=== PATIENT | male | born 1970 ===

== ENCOUNTER 2018-03-23 10:32 | Emergency (ER) | payer OTHER ==
[2018-03-23 10:45] VITALS: BMI 22.9
[2018-03-23] MEDS ORDERED: Sodium Chloride 0.9% 1,000 ML IV STA ×2 (12:12→14:05)
--- NOTE | 2018-03-23 12:17 | ED PDOC ---
HPI: CCC, URI, Sore Throat Time Seen by Provider: 03/23/18 11:12 History Per: Patient Onset/Duration Of Symptoms: Days (2) Current Symptoms Are (Timing): Still Present Associated Symptoms: Fever, Cough Severity: Mild Additional Complaint(s): Cough productive clear sputum assoc with fever x 2 days. Denies SOB. Also c/o epigastric abd pain assoc with vomiting. Denies diarrhea. Past Medical History Vital Signs: Last Vital Signs Temp 97 F L 03/23/18 17:57 Pulse 78 03/23/18 17:57 Resp 19 03/23/18 17:57 BP 128/78 03/23/18 17:57 Pulse Ox 98 03/23/18 17:57 - Medical History PMH: Diabetes - Family History Family History: States: Unknown Family Hx - Home Medications Home Medications: Ambulatory Orders Medication Instructions Recorded Famotidine [Pepcid] 20 mg PO DAILY PRN #6 tab 03/23/18 Ibuprofen [Motrin] 600 mg PO TID 7 Days tab 03/23/18 Ondansetron [Zofran] 4 mg PO Q8H PRN #6 tab 03/23/18 - Allergies Allergies/Adverse Reactions: Allergies Allergy/AdvReac Type Severity Reaction Status Date / Time No Known Allergies Allergy Verified 03/25/18 07:43 Review of Systems Constitutional: Negative for: Fever Respiratory: Positive for: Cough Gastrointestinal: Positive for: Vomiting, Abdominal Pain Physical Exam - Reviewed Nursing Documentation Reviewed: Yes Vital Signs Reviewed: Yes - Physical Exam Appears: Positive for: Non-toxic, No Acute Distress Head Exam: Positive for: ATRAUMATIC, NORMAL INSPECTION, NORMOCEPHALIC Skin: Positive for: Normal Color, Warm, DRY Eye Exam: Positive for: EOMI, Normal appearance, PERRL ENT: Positive for: Other (Mucous membranes dry) Neck: Positive for: Normal, Painless ROM Cardiovascular/Chest: Positive for: Regular Rate, Rhythm Respiratory: Positive for: Rhonchi. Negative for: Wheezing, Respiratory Distress Gastrointestinal/Abdominal: Positive for: Soft, Tenderness (epigastric) Back: Positive for: Normal Inspection Extremity: Positive for: Normal ROM Neurologic/Psych: Positive for: Alert, Oriented - Laboratory Results Result Diagrams: 03/23/18 12:29 03/23/18 12:29 - ECG O2 Sat by Pulse Oximetry: 99 Disposition - Clinical Impression Clinical Impression: Abdominal pain, URI (upper respiratory infection), Hyperglycemia - Patient ED Disposition Is Patient to be Admitted: Transfer of Care - Disposition Referrals: [facility] [Outside] - 03/24/18 Disposition: Transfer of Care Disposition Time: 15:00 Condition: STABLE Additional Instructions: Return if not better in 3 days. Prescriptions: Famotidine [Pepcid] 20 mg PO DAILY PRN #6 tab PRN Reason: Pain Ibuprofen [Motrin] 600 mg PO TID 7 Days tab Ondansetron [Zofran] 4 mg PO Q8H PRN #6 tab PRN Reason: Nausea/Vomiting Instructions: Hyperglycemia, Adult, Viral Upper Respiratory Infection, Adult ( DC), Stomach Ache and Stomach Upset Forms: [employer] (Tajik), [facility] ED School/Work Excuse Patient Signed Over To: Piyush Louie
[2018-03-23 12:33] LABS: BASO % 0.1 % (0.0-2.0); HEMOGLOBIN 14.8 g/dL (12.0-18.0); LYMPH # 0.5 K/uL (1.0-4.3); LYMPH % 7.7 % (20.0-40.0); MEAN CELL VOLUME 89.1 fl (80.0-94.0); MEAN CORPUSCULAR HGB CONC 33.7 g/dL (33.0-37.0); MEAN PLATELET VOLUME 10.8 fl (7.2-11.7); MONO # 0.5 K/uL (0.0-0.8); MONO % 7.1 % (0.0-10.0); NEUT # 5.7 K/uL (1.8-7.0); NEUT % 85.1 % (50.0-75.0); RBC 4.94 Mil/uL (4.40-5.90); RED CELL DISTRIBUTION WIDTH 12.9 % (11.5-14.5); WHITE BLOOD COUNT 6.7 K/uL (4.8-10.8)
[2018-03-23 12:39] LABS: PLATELET COUNT 103 K/uL (130-400)
[2018-03-23 12:47] LABS: ALB/GLOB RATIO 1.4 (1.0-2.1); ALT/SGPT 64 U/L (21-72); AST/SGOT 36 U/L (17-59); BLOOD UREA NITROGEN 12 mg/dl (9-20); CALCIUM 9.1 mg/dL (8.4-10.2); GFR AFRICAN-AMERICAN > 60; GFR NON-AFRICAN AMERICAN > 60; LIPASE 77 U/L (23-300)
[2018-03-23 12:57] LABS: VENOUS BLOOD GAS BASE EXCESS 5.6 mmol/L (0.0-2.0); VENOUS BLOOD GAS PCO2 41 mmHg (40-60); VENOUS BLOOD GAS PO2 18 mm/Hg (30-55); VENOUS BLOOD PH 7.47 (7.32-7.43)
--- NOTE | 2018-03-23 13:24 | RAD ---
HISTORY: Cough COMPARISON: No prior. TECHNIQUE: Chest PA and lateral FINDINGS: LUNGS: No active pulmonary disease. PLEURA: No significant pleural effusion identified. No pneumothorax apparent. CARDIOVASCULAR: Normal. OSSEOUS STRUCTURES: No significant abnormalities. VISUALIZED UPPER ABDOMEN: Normal. OTHER FINDINGS: None. IMPRESSION: No active disease.
--- NOTE | 2018-03-23 13:41 | CARD ---
APPROVED REPORT EKG Measurement Heart [id number] <Conclusion> Normal sinus rhythm Normal ECG
[2018-03-23 13:59] LABS: BANDS 5 % (0-2); BASOPHIL 1 % (0-2); LYMPHOCYTE 8 % (20-50); MONOCYTE 5 % (0-10); NEUTROPHIL 81 % (42-75); TOTAL CELLS COUNTED 100
[2018-03-23 14:00] LABS: PLATELET ESTIMATE DECREASED (NORMAL)
--- NOTE | 2018-03-23 15:27 | ED PDOC ---
- Laboratory Results Result Diagrams: 03/23/18 12:29 03/23/18 12:29 Interpretation Of Abn Labs: 237 glucose - ECG ECG: Positive for: Interpreted By Me, Viewed By Me ECG Rhythm: Positive for: Normal QRS, Normal ST Segment, Sinus Rhythm O2 Sat by Pulse Oximetry: 98 Pulse Ox Interpretation: Normal - Radiology X-Ray: Read By Radiologist X-Ray Interpretation: No Acute Disease - CT Scan/US ct Other Rad Studies (CT/US): Read By Radiologist Other Rad Interpretation: no acute - Progress ED Course And Treament: 1743: Stable. AAOx3. Pain free. Has uri symptoms and epigastric pain. CT abd/pelvis no acute findings. FU with pcp. Medical Decision Making Medical Decision Making: Time: 1500 --Patient is endorsed to provider from Dr. Alba, pending CT ABD/pelvis results for complaints of upper abdominal pain with nausea, vomiting and diarrhea. Time: 1625 --CT ABD/pelvis FINDINGS: LOWER THORAX: Unremarkable. LIVER: Unremarkable. No gross lesion or ductal dilatation. GALLBLADDER AND BILE DUCTS: Unremarkable. PANCREAS: Unremarkable. No gross lesion or ductal dilatation. SPLEEN: Unremarkable. ADRENALS: Unremarkable. No mass. KIDNEYS AND URETERS: Unremarkable. No hydronephrosis. No solid mass. VASCULATURE: Unremarkable. No aortic aneurysm. BOWEL: Mild sigmoid diverticulosis. No evidence of diverticulitis. No other abnormal bowel loops are identified. APPENDIX: Normal appendix. PERITONEUM: Trace fluid in pelvis. No pneumoperitoneum. LYMPH NODES: Unremarkable. No enlarged lymph nodes. BLADDER: Unremarkable. REPRODUCTIVE: Normal prostate BONES: No acute fracture. OTHER FINDINGS: None. IMPRESSION: Mild sigmoid diverticulosis without evidence of diverticulitis. Trace fluid in pelvis, nonspecific. Otherwise unremarkable examination. Scribe Attestation: Documented by Arely Becerra, acting as a scribe for Piyush Louie MD. Provider Scribe Attestation: All medical record entries made by the Scribe were at my direction and personally dictated by me. I have reviewed the chart and agree that the record accurately reflects my personal performance of the history, physical exam, medical decision making, and the department course for this patient. I have also personally directed, reviewed, and agree with the discharge instructions and disposition. Disposition Counseled Patient/Family Regarding: Studies Performed, Diagnosis, Need For Followup, Rx Given - Clinical Impression Clinical Impression: Abdominal pain, URI (upper respiratory infection), Hyperglycemia - POA Present On Arrival: Poor Glycemic Control - Disposition Referrals: [facility] [Outside] - 03/24/18 Disposition: Routine/Home Disposition Time: 17:45 Condition: STABLE Additional Instructions: Return if not better in 3 days. Prescriptions: Famotidine [Pepcid] 20 mg PO DAILY PRN #6 tab PRN Reason: Pain Ibuprofen [Motrin] 600 mg PO TID 7 Days tab Ondansetron [Zofran] 4 mg PO Q8H PRN #6 tab PRN Reason: Nausea/Vomiting Instructions: Hyperglycemia, Adult, Viral Upper Respiratory Infection, Adult ( DC), Stomach Ache and Stomach Upset Forms: [employer] (Palauan), [facility] ED School/Work Excuse
[2018-03-23] MEDS ORDERED: Iohexol 300 100 ML IJ ONE (15:30)
[2018-03-23] MEDS ORDERED: Sodium Chloride 0.9% 100 ML ONE (15:31)
--- NOTE | 2018-03-23 16:26 | CT ---
PROCEDURE: CT Abdomen and Pelvis with contrast HISTORY: abd pain COMPARISON: None. TECHNIQUE: Contrast dose: 90 mL Omnipaque 300 Radiation dose: Total exam DLP = 339.29 mGy-cm. This CT exam was performed using one or more of the following dose reduction techniques: Automated exposure control, adjustment of the mA and/or kV according to patient size, and/or use of iterative reconstruction technique. FINDINGS: LOWER THORAX: Unremarkable. LIVER: Unremarkable. No gross lesion or ductal dilatation. GALLBLADDER AND BILE DUCTS: Unremarkable. PANCREAS: Unremarkable. No gross lesion or ductal dilatation. SPLEEN: Unremarkable. ADRENALS: Unremarkable. No mass. KIDNEYS AND URETERS: Unremarkable. No hydronephrosis. No solid mass. VASCULATURE: Unremarkable. No aortic aneurysm. BOWEL: Mild sigmoid diverticulosis. No evidence of diverticulitis. No other abnormal bowel loops are identified. APPENDIX: Normal appendix. PERITONEUM: Trace fluid in pelvis. No pneumoperitoneum. LYMPH NODES: Unremarkable. No enlarged lymph nodes. BLADDER: Unremarkable. REPRODUCTIVE: Normal prostate BONES: No acute fracture. OTHER FINDINGS: None. IMPRESSION: Mild sigmoid diverticulosis without evidence of diverticulitis. Trace fluid in pelvis, nonspecific. Otherwise unremarkable examination.
[2018-03-23 16:42] VITALS: RESP 19; TEMP 97
[2018-03-23 17:57] VITALS: BP 128/78; PULSE 78
[2018-03-25 09:23] VITALS: O2SAT 99
== END 2018-03-23 18:03 | disposition home or self-care (01) ==
LOC: H.ER 10:32
DX: R10.13 Epigastric pain (principal); J06.9 Acute upper respiratory infection, unspecified; E11.65 Type 2 diabetes mellitus with hyperglycemia; K57.30 Diverticulosis of large intestine without perforation or abscess without bleeding
CPT/HCPCS: 71046; 74177; 80053; 82803; 83690; 85025; 87040; 93005; 96374; 96375; 99284; J2405; J2765; J7030; Q9967

== ENCOUNTER 2018-03-25 07:38 | Emergency (ER) | payer OTHER ==
[2018-03-25 07:38] VITALS: BMI 22.9
[2018-03-25] MEDS ORDERED: Sodium Chloride 0.9% 1,000 ML IV STA (08:17)
--- NOTE | 2018-03-25 08:33 | ED PDOC ---
HPI: Abdomen Time Seen by Provider: 03/25/18 08:10 Chief Complaint (Nursing): Abdominal Pain Chief Complaint (Provider): Abdominal Pain History Per: Patient History/Exam Limitations: no limitations Current Symptoms Are (Timing): Still Present Additional History Per: Prior Records Additional Complaint(s): 47-year-old male, with a PMHx of diabetes, presents to ED for abdominal pain and vomiting. Pt was seen here 2 days for abdominal pain and vomiting. While here, blood work and CT scan were performed where results showed no inflammatory process or infectious process. Pt was discharged with anti-nausea medication and pain medication including Motrin. Pt states he not been able to eat, drink or tolerate any food since discharge. Reports pain as persistent. (+ ) vomiting, (-) fever, (-) chills, (+) feels weak, (-) cough, (-) chest pain, (- ) back pain, (+) left-sided abdominal pain, (-) rashes, (-) diarrhea PMD: No Family Provider Past Medical History Reviewed: Historical Data, Nursing Documentation, Vital Signs Vital Signs: Last Vital Signs Temp 97.8 F 03/25/18 07:49 Pulse 90 03/25/18 07:49 Resp 20 03/25/18 07:49 BP 146/32 L 03/25/18 07:49 Pulse Ox 100 03/25/18 10:38 - Medical History PMH: Diabetes - Surgical History Surgical History: No Surg Hx - Family History Family History: States: Unknown Family Hx - Social History Current smoker - smoking cessation education provided: No Alcohol: None Drugs: Denies - Home Medications Home Medications: Ambulatory Orders Medication Instructions Recorded Famotidine [Pepcid] 20 mg PO DAILY PRN #6 tab 03/23/18 Ibuprofen [Motrin] 600 mg PO TID 7 Days tab 03/23/18 Ondansetron [Zofran] 4 mg PO Q8H PRN #6 tab 03/23/18 Famotidine [Pepcid] 20 mg PO BID #28 tab 03/25/18 Metoclopramide [Reglan] 10 mg PO TID PRN #10 tab 03/25/18 Ondansetron ODT [Zofran ODT] 8 mg PO TID #12 odt 03/25/18 - Allergies Allergies/Adverse Reactions: Allergies Allergy/AdvReac Type Severity Reaction Status Date / Time No Known Allergies Allergy Verified 03/25/18 07:43 Review of Systems ROS Statement: Except As Marked, All Systems Reviewed And Found Negative Constitutional: Positive for: Weakness. Negative for: Fever, Chills Cardiovascular: Negative for: Chest Pain Respiratory: Negative for: Cough Gastrointestinal: Positive for: Vomiting, Abdominal Pain. Negative for: Diarrhea Musculoskeletal: Negative for: Back Pain Skin: Negative for: Rash Physical Exam - Reviewed Nursing Documentation Reviewed: Yes Vital Signs Reviewed: Yes - Physical Exam Appears: Positive for: Well, In Acute Distress ((+) Moderate discomfort, (+) Pt' s eyes are closed due to pain, (+) Pt) Head Exam: Positive for: ATRAUMATIC, NORMAL INSPECTION, NORMOCEPHALIC Skin: Positive for: Normal Color, Warm, Dry Eye Exam: Positive for: Normal appearance ((+) 2 mm b/l, (+) anicteric), EOMI, PERRL ENT: Positive for: Normal ENT Inspection Neck: Positive for: Supple Cardiovascular/Chest: Positive for: Regular Rate, Rhythm (s1 and s2 sounds present) Respiratory: Positive for: Normal Breath Sounds (Lungs clear) Gastrointestinal/Abdominal: Positive for: Normal Exam, Soft, Tenderness ( Tenderness to LUQ and Epigastric area) Back: Positive for: Normal Inspection, Other ((-) cerivcal nodes or swelling). Negative for: L CVA Tenderness, R CVA Tenderness Extremity: Negative for: Swelling Neurologic/Psych: Positive for: Alert, Oriented (x 3). Negative for: Motor/ Sensory Deficits - Laboratory Results Result Diagrams: 03/25/18 08:30 03/25/18 08:30 - ECG O2 Sat by Pulse Oximetry: 100 (RA) Pulse Ox Interpretation: Normal Medical Decision Making Medical Decision Making: Time: 08:17 Impression(s): Abdominal pain, Gastritis, Pancreatitis, Colitis Plan: - CMP - Lipase - ED Urine Dipstick - CBC (with differential) - Morphine 2 mg IVP - Sodium Chloride 0.9% 1,000 ml IV 999 mls/hr - Pepcid 20 mg IVP - Zofran 4 mg IVP Time: 09:13 - Morphine 2 mg IV - Reglan 10 mg IV Scribe Attestation: Documented by Jeff Waters, acting as a scribe for Verónica Patel MD. Provider Scribe Attestation: All medical record entries made by the Scribe were at my direction and personally dictated by me. I have reviewed the chart and agree that the record accurately reflects my personal performance of the history, physical exam, medical decision making, and the department course for this patient. I have also personally directed, reviewed, and agree with the discharge instructions and disposition. Disposition - Clinical Impression Clinical Impression: Gastritis - Patient ED Disposition Is Patient to be Admitted: No Doctor Will See Patient In The: Office Counseled Patient/Family Regarding: Diagnosis, Need For Followup, Rx Given - Disposition Referrals: [facility] [Outside] Bruce Cuevas MD [Staff Provider] - Disposition: Routine/Home Disposition Time: 10:15 Condition: IMPROVED Prescriptions: Famotidine [Pepcid] 20 mg PO BID #28 tab Metoclopramide [Reglan] 10 mg PO TID PRN #10 tab PRN Reason: intractable nausea Ondansetron ODT [Zofran ODT] 8 mg PO TID #12 odt Instructions: Gastritis Forms: [employer] (South African), [facility] ED School/Work Excuse Print Language: [place] - POA Present On Arrival: None
[2018-03-25 09:32] LABS: BASO % 0.1 % (0.0-2.0); EOS % 0.1 % (0.0-4.0); HEMOGLOBIN 14.9 g/dL (12.0-18.0); LYMPH # 0.6 K/uL (1.0-4.3); LYMPH % 7.9 % (20.0-40.0); MEAN CELL VOLUME 88.1 fl (80.0-94.0); MEAN CORPUSCULAR HEMOGLOBIN 30.4 pg (27.0-31.0); MEAN CORPUSCULAR HGB CONC 34.6 g/dL (33.0-37.0); MEAN PLATELET VOLUME 10.8 fl (7.2-11.7); MONO # 0.7 K/uL (0.0-0.8); MONO % 8.2 % (0.0-10.0); NEUT # 6.7 K/uL (1.8-7.0); NEUT % 83.7 % (50.0-75.0); NRBC % 0.1 % (0.0-0.0); RBC 4.9 Mil/uL (4.40-5.90)
[2018-03-25 10:03] LABS: ALB/GLOB RATIO 1.4 (1.0-2.1); ALBUMIN 4.1 g/dL (3.5-5.0); ALT/SGPT 50 U/L (21-72); AST/SGOT 38 U/L (17-59); BLOOD UREA NITROGEN 13 mg/dl (9-20); CALCIUM 9.2 mg/dL (8.4-10.2); GFR AFRICAN-AMERICAN > 60; GFR NON-AFRICAN AMERICAN > 60; LIPASE 106 U/L (23-300)
[2018-03-25 11:56] VITALS: BP 132/68; PULSE 78; RESP 18; TEMP 98.2; O2SAT 98
== END 2018-03-25 11:30 | disposition home or self-care (01) ==
LOC: H.ER 07:38
DX: K29.70 Gastritis, unspecified, without bleeding (principal); E11.9 Type 2 diabetes mellitus without complications
CPT/HCPCS: 80053; 82948; 83690; 85025; 96374; 96375; 96376; 99283; J2270; J2405; J2765; J7030